=== PATIENT | female | born 1965 | race Two or more races ===

== ENCOUNTER 2021-04-10 11:36 | Emergency (ER) | payer MEDICAID ==
[~2021-04-10] VITALS: Ht 172.7 cm; Wt 80.0 kg
[2021-04-10] MEDS ORDERED: KETOROLAC 30MG/ML VIAL IM ONE (12:00)
[2021-04-10] MEDS ORDERED: NAP5EC MT (13:34)
[2021-04-10 13:54] VITALS: BP 136/87
== END 2021-04-10 13:55 | disposition home or self-care (01) ==
LOC: ER 11:55
DX: S40.012A Contusion of left shoulder, initial encounter (principal); S16.1XXA Strain of muscle, fascia and tendon at neck level, initial encounter; S39.012A Strain of muscle, fascia and tendon of lower back, initial encounter; S70.312A Abrasion, left thigh, initial encounter; E78.00 Pure hypercholesterolemia, unspecified; V43.52XA Car driver injured in collision with other type car in traffic accident, initial encounter; Y93.89 Activity, other specified; Y92.488 Other paved roadways as the place of occurrence of the external cause
CPT/HCPCS: 73030; 96372; 99283; J1885